=== PATIENT | male | born 1980 | race Caucasian/White ===

== ENCOUNTER 2020-03-13 21:29 | Emergency (ER) | payer OTHER ==
[~2020-03-13] VITALS: Ht 172.7 cm; Wt 63.5 kg
[2020-03-13 21:31] VITALS: BP 98/61
== END 2020-03-13 23:22 | disposition home or self-care (01) ==
LOC: ER 21:29
DX: M79.672 Pain in left foot (principal); J45.909 Unspecified asthma, uncomplicated; F17.210 Nicotine dependence, cigarettes, uncomplicated; Z59.0 Homelessness